=== PATIENT | male | born 1935 | race Caucasian/White ===

== ENCOUNTER 2020-07-22 15:24 | Emergency (ER) | payer MEDICARE ==
[~2020-07-22] VITALS: Ht 172.7 cm; Wt 103.4 kg
[2020-07-22 16:11] LABS: BASO % 0.2 % (0.0-1.0); EOS # 0.2 10*3/uL (0.0-0.4); EOS % 2.9 % (1.0-4.0); HEMATOCRIT 41.9 % (42.0-52.0); LYMPH # 1.6 10*3/uL (1.3-4.4); MEAN CELL VOLUME 93.1 fl (80.0-94.0); MEAN CORPUSCULAR HGB 30.9 pg (27.0-31.0); MEAN CORPUSCULAR HGB CONC 33.2 g/dl (33.0-37.0); MONO # 0.4 10*3/uL (0.1-1.0); MONO % 7.3 % (3.0-9.0); NEUT % 58.4 % (47.0-73.0); PLATELET COUNT AUTOMATED 133 10*3/uL (130-400); RED CELL DISTRI WIDTH 13.3 % (0-14.5); WHITE BLOOD COUNT 5.1 10*3/uL (4.8-10.8)
[2020-07-22 16:20] LABS: ACT PARTIAL THROMBO TIME 25.8 SECONDS (20.0-32.1)
[2020-07-22 16:27] LABS: ALBUMIN 3.3 gm/dl (3.1-4.5); ALKALINE PHOSPHATASE 73 U/L (45-117); BUN 21 mg/dl (7-24); CHLORIDE 115 mmol/L (98-107); CREATININE 1.14 mg/dL (0.70-1.30); LIPASE 94 U/L (73-393); POTASSIUM 3.8 mmol/L (3.5-5.1); SGOT/AST 19 IU/L (3-35); SGPT/ALT 19 U/L (12-78); SODIUM 144 mmol/L (136-145)
[2020-07-22 16:29] LABS: TROPONIN I < 0.015 ng/ml (<0.045)
== END 2020-07-22 18:31 | disposition home or self-care (01) ==
LOC: ED 15:24
PROVIDERS: Emergency Medicine
DX: K64.9 Unspecified hemorrhoids (principal)

== ENCOUNTER 2020-11-03 09:47 | Inpatient (IN) | payer MEDICARE ==
[~2020-11-03] VITALS: Ht 167.6 cm; Wt 102.3 kg
[2020-11-03 09:58] VITALS: BP 125/84
[2020-11-03 10:39] LABS: BASO % 0.2 % (0.0-1.0); EOS # 0.1 10*3/uL (0.0-0.4); EOS % 1.9 % (1.0-4.0); LYMPH # 1.1 10*3/uL (1.3-4.4); LYMPH % 17.8 % (27.0-41.0); MEAN CELL VOLUME 93.8 fl (80.0-94.0); MEAN CORPUSCULAR HGB 30.7 pg (27.0-31.0); MEAN CORPUSCULAR HGB CONC 32.7 g/dl (33.0-37.0); MEAN PLATELET VOLUME 9.1 fl (9.6-12.3); MONO # 0.6 10*3/uL (0.1-1.0); MONO % 9.4 % (3.0-9.0); NEUT # 4.5 10*3/uL (2.3-7.9); NEUT % 70.5 % (47.0-73.0); PLATELET COUNT AUTOMATED 104 10*3/uL (130-400); RED BLOOD COUNT 4.37 10*6/uL (4.50-5.90); RED CELL DISTRI WIDTH 14.7 % (0-14.5); WHITE BLOOD COUNT 6.4 10*3/uL (4.8-10.8)
[2020-11-03 11:06] LABS: ALBUMIN 2.9 gm/dl (3.1-4.5); ALKALINE PHOSPHATASE 66 U/L (45-117); BUN 16 mg/dl (7-24); CHLORIDE 109 mmol/L (98-107); LIPASE 98 U/L (73-393); POTASSIUM 3.7 mmol/L (3.5-5.1); SGOT/AST 20 IU/L (3-35); SGPT/ALT 20 U/L (12-78); SODIUM 140 mmol/L (136-145); TOTAL PROTEIN 6.4 gm/dL (6.4-8.2)
[2020-11-03 11:10] LABS: TROPONIN I < 0.015 ng/ml (<0.045)
[2020-11-03 11:59] LABS: BILIRUBIN Negative (Negative); BLOOD 1+ (Negative); CLARITY Clear (Clear); COLOR Yellow (Yellow); GLUCOSE Negative (Negative); KETONE Trace (Negative); LEUKO ESTERASE Negative (Negative); NITRITE Negative (Negative); SPECIFIC GRAVITY 1.025 (1.001-1.030)
[2020-11-03 12:12] LABS: BACTERIA 1+; MUCOUS 2+
[2020-11-03 12:57] VITALS: BP 132/63
[2020-11-03 13:42] VITALS: BP 108/44
[2020-11-03 15:30] VITALS: BP 146/72
[2020-11-03] MEDS ORDERED: ATORVASTATIN CA20 M1 PO (16:29)
[2020-11-03] MEDS ORDERED: LOPRESSOR25 MG PO (16:30)
[2020-11-03 20:00] VITALS: BP 153/85
[2020-11-04] VITALS: BP 135/75
[2020-11-04 00:07] VITALS: BP 153/85
[2020-11-04 04:04] VITALS: BP 153/85
[2020-11-04 07:15] LABS: BASO % 0.1 % (0.0-1.0); HEMATOCRIT 42.1 % (42.0-52.0); LYMPH # 0.9 10*3/uL (1.3-4.4); LYMPH % 12.2 % (27.0-41.0); MEAN CORPUSCULAR HGB 30.5 pg (27.0-31.0); MEAN CORPUSCULAR HGB CONC 32.1 g/dl (33.0-37.0); MONO # 0.7 10*3/uL (0.1-1.0); MONO % 9.4 % (3.0-9.0); NEUT # 5.5 10*3/uL (2.3-7.9); NEUT % 77.9 % (47.0-73.0); PLATELET COUNT AUTOMATED 104 10*3/uL (130-400); RED BLOOD COUNT 4.43 10*6/uL (4.50-5.90); RED CELL DISTRI WIDTH 14.5 % (0-14.5); WHITE BLOOD COUNT 7.1 10*3/uL (4.8-10.8)
[2020-11-04 07:20] LABS: ALBUMIN 2.8 gm/dl (3.1-4.5); BUN 19 mg/dl (7-24); CHLORIDE 110 mmol/L (98-107); CREATININE 0.77 mg/dL (0.70-1.30); POTASSIUM 4.5 mmol/L (3.5-5.1); SGOT/AST 18 IU/L (3-35); SGPT/ALT 19 U/L (12-78); SODIUM 142 mmol/L (136-145); TOTAL PROTEIN 6.5 gm/dL (6.4-8.2)
[2020-11-04 07:23] LABS: ALKALINE PHOSPHATASE 65 U/L (45-117)
[2020-11-04 08:00] VITALS: BP 123/58
[2020-11-04 09:10] LABS: VITAMIN D, 25-HYDROXY 56.3 ng/mL (30-100)
[2020-11-04 12:00] VITALS: BP 134/64
[2020-11-04] MEDS ORDERED: MUCUS RELIEF600 MG PO (12:08)
[2020-11-04] MEDS ORDERED: OMNICEF300 MG PO ×2 (12:08)
== END 2020-11-04 13:40 | disposition home or self-care (01) | DRG 689 ==
LOC: ED 09:47 → 4E 11:39 → EDHOLD 11:39 → 4E 14:09
PROVIDERS: Emergency Medicine; Hospitalist; ADMIT Internal Medicine; ATTEND Internal Medicine
DX: N39.0 Urinary tract infection, site not specified (principal); G93.41 Metabolic encephalopathy; E87.2 Acidosis; E44.0 Moderate protein-calorie malnutrition; Z66 Do not resuscitate; Z51.5 Encounter for palliative care; D64.9 Anemia, unspecified; Z20.822 Contact with and (suspected) exposure to COVID-19; E78.5 Hyperlipidemia, unspecified; E87.8 Other disorders of electrolyte and fluid balance, not elsewhere classified; R73.9 Hyperglycemia, unspecified; D69.6 Thrombocytopenia, unspecified; Z68.36 Body mass index [BMI] 36.0-36.9, adult

== ENCOUNTER 2020-11-14 19:14 | Inpatient (IN) | payer MEDICARE ==
[~2020-11-14] VITALS: Ht 167.6 cm; Wt 95.5 kg
[~2020-11-14 19:14] MED LIST: ATORVASTATIN CA20 M1 PO; LOPRESSOR25 MG PO; MUCUS RELIEF600 MG PO; OMNICEF300 MG PO
[2020-11-14 19:33] VITALS: BP 119/44
[2020-11-14 21:56] LABS: HEMATOCRIT 40.8 % (42.0-52.0); LYMPH # 0.7 10*3/uL (1.3-4.4); MEAN CELL VOLUME 93.2 fl (80.0-94.0); MEAN CORPUSCULAR HGB 30.1 pg (27.0-31.0); MEAN CORPUSCULAR HGB CONC 32.4 g/dl (33.0-37.0); MEAN PLATELET VOLUME 10.2 fl (9.6-12.3); MONO # 0.2 10*3/uL (0.1-1.0); MONO % 5.3 % (3.0-9.0); NEUT # 3.4 10*3/uL (2.3-7.9); NEUT % 78.5 % (47.0-73.0); PLATELET COUNT AUTOMATED 103 10*3/uL (130-400); RED BLOOD COUNT 4.38 10*6/uL (4.50-5.90); RED CELL DISTRI WIDTH 14.7 % (0-14.5); WHITE BLOOD COUNT 4.3 10*3/uL (4.8-10.8)
[2020-11-14 22:01] VITALS: BP 126/71
[2020-11-14 22:10] LABS: ALBUMIN 2.8 gm/dl (3.1-4.5); ALKALINE PHOSPHATASE 60 U/L (45-117); BUN 29 mg/dl (7-24); CHLORIDE 107 mmol/L (98-107); CREATININE 1.29 mg/dL (0.70-1.30); POTASSIUM 3.9 mmol/L (3.5-5.1); SGOT/AST 68 IU/L (3-35); SGPT/ALT 42 U/L (12-78); SODIUM 138 mmol/L (136-145); TOTAL PROTEIN 5.9 gm/dL (6.4-8.2)
[2020-11-14 22:25] LABS: TROPONIN I 0.028 ng/ml (<0.045)
[2020-11-14 23:03] LABS: BILIRUBIN Negative (Negative); BLOOD 2+ (Negative); CLARITY Cloudy (Clear); COLOR Yellow (Yellow); GLUCOSE Negative (Negative); KETONE Trace (Negative); LEUKO ESTERASE Negative (Negative); NITRITE Negative (Negative); SPECIFIC GRAVITY 1.025 (1.001-1.030)
[2020-11-14 23:50] LABS: RBC 16-20 rbc/hpf (0-2)
[2020-11-14 23:51] LABS: BACTERIA 1+
[2020-11-15 02:04] VITALS: BP 124/75
[2020-11-15 06:19] VITALS: BP 136/73
[2020-11-15 06:19] LABS: BASO % 0.2 % (0.0-1.0); HEMATOCRIT 40.9 % (42.0-52.0); LYMPH # 1.1 10*3/uL (1.3-4.4); LYMPH % 26.7 % (27.0-41.0); MEAN CELL VOLUME 94.2 fl (80.0-94.0); MEAN CORPUSCULAR HGB 30.2 pg (27.0-31.0); MEAN PLATELET VOLUME 10.5 fl (9.6-12.3); MONO # 0.3 10*3/uL (0.1-1.0); MONO % 6.4 % (3.0-9.0); NEUT # 2.7 10*3/uL (2.3-7.9); NEUT % 66.5 % (47.0-73.0); PLATELET COUNT AUTOMATED 99 10*3/uL (130-400); RED BLOOD COUNT 4.34 10*6/uL (4.50-5.90); RED CELL DISTRI WIDTH 14.8 % (0-14.5); WHITE BLOOD COUNT 4.1 10*3/uL (4.8-10.8)
[2020-11-15 06:28] LABS: ALBUMIN 2.7 gm/dl (3.1-4.5); BUN 26 mg/dl (7-24); CHLORIDE 107 mmol/L (98-107); CREATININE 1.15 mg/dL (0.70-1.30); SGOT/AST 68 IU/L (3-35); SGPT/ALT 43 U/L (12-78); SODIUM 138 mmol/L (136-145); TOTAL PROTEIN 5.9 gm/dL (6.4-8.2)
[2020-11-15 06:39] LABS: ALKALINE PHOSPHATASE 57 U/L (45-117); THYROID STIM HORMONE (HS) 0.758 uIU/ml (0.358-4.75)
[2020-11-15 06:41] LABS: INTERNATIONAL NORM RATIO 1.1 (2.0-3.5)
[2020-11-15 08:00] VITALS: BP 127/86
[2020-11-15 12:00] VITALS: BP 136/73
[2020-11-15] MEDS ORDERED: CRESTOR20 M1 PO (15:04)
[2020-11-15 16:30] VITALS: BP 119/61
[2020-11-15 20:00] VITALS: BP 141/60
[2020-11-16] VITALS: BP 137/63
[2020-11-16 08:00] VITALS: BP 136/64
[2020-11-16] MEDS ORDERED: DECADRON6 M1 PO (11:56)
[2020-11-16 12:00] VITALS: BP 130/63
[2020-11-16] MEDS ORDERED: HOSPBED (12:54)
== END 2020-11-16 15:20 | disposition home or self-care (01) | DRG 177 ==
LOC: ED 19:14 → EDHOLD 11-15 04:28 → 4E 11-15 14:42
PROVIDERS: Emergency Medicine; Hospitalist; ADMIT Internal Medicine; ATTEND Internal Medicine
DX: U07.1 COVID-19 (principal); E43 Unspecified severe protein-calorie malnutrition; J12.82 Pneumonia due to coronavirus disease 2019; D61.818 Other pancytopenia; N39.0 Urinary tract infection, site not specified; G93.40 Encephalopathy, unspecified; R73.9 Hyperglycemia, unspecified; R74.01 Elevation of levels of liver transaminase levels; I10 Essential (primary) hypertension; R29.6 Repeated falls; K64.9 Unspecified hemorrhoids; E78.2 Mixed hyperlipidemia; Z79.899 Other long term (current) drug therapy; Z68.33 Body mass index [BMI] 33.0-33.9, adult